=== PATIENT | male | born 1960 | race Caucasian/White ===

== ENCOUNTER 2023-06-30 16:34 | Emergency (ER) | payer MEDICARE, OTHER ==
[~2023-06-30 16:34] MED LIST: AMLO-212 PO; ATEN100T PO; OLME1TAB16 PO
== END 2023-06-30 16:51 | disposition left against medical advice (07) ==
LOC: ER 16:35
DX: Z04.1 Encounter for examination and observation following transport accident (principal); Z53.21 Procedure and treatment not carried out due to patient leaving prior to being seen by health care provider